=== PATIENT | female | born 1995 | race African-American/Black ===

== ENCOUNTER 2024-07-11 17:22 | Emergency (ER) | payer SELFPAY ==
[~2024-07-11] VITALS: Ht 157.5 cm; Wt 57.7 kg
[2024-07-11 17:26] VITALS: BP 125/88; PULSE 102; RESP 18; TEMP 98.2; O2SAT 99
[2024-07-11] MEDS ORDERED: MEDR150V13 IM (17:29)
[2024-07-11] MEDS ORDERED: VALA100026 PO (17:58)
[2024-07-11] MEDS: ValACYclovir HCL 500 MG TABLET PO ONE (18:09)
== END 2024-07-11 18:14 | disposition home or self-care (01) ==
LOC: EMS 17:25
DX: N94.89 Other specified conditions associated with female genital organs and menstrual cycle (principal); A60.09 Herpesviral infection of other urogenital tract; Z98.890 Other specified postprocedural states; Z79.899 Other long term (current) drug therapy
CPT/HCPCS: 99283